=== PATIENT | female | born 1965 | race Two or more races ===

== ENCOUNTER 2016-07-15 12:46 | Emergency (ER) | payer SELFPAY ==
--- NOTE | 2016-07-15 13:13 | ER Document Report ---
ED Medical Screen (RME) - General Stated Complaint: VAGINAL BLEEDING >30 DAYS Time seen by provider: 13:12 Mode of Arrival: Ambulatory Information source: Patient Notes: 50-year-old female complaining of vaginal bleeding since 06/04/2015. The bleeding has been very heavy for 3 days. Large clot this morning. - Related Data Allergies/Adverse Reactions: No Known Allergies Allergy (Verified 07/15/16 13:11) Physical Exam - Vital signs Vitals: Temp Pulse Resp BP Pulse Ox 97.9 F 66 16 142/75 H 98 07/15/16 13:04 07/15/16 13:04 07/15/16 13:04 07/15/16 13:04 07/15/16 13:04 Course - Vital Signs Vital signs: Temp Pulse Resp BP Pulse Ox 97.9 F 66 16 142/75 H 98 07/15/16 13:04 07/15/16 13:04 07/15/16 13:04 07/15/16 13:04 07/15/16 13:04
[2016-07-15 13:37] LABS: ABSOLUTE BASOPHILS # (AUTO) 0.1 10^3/uL (0.0-0.2); ABSOLUTE EOSINOPHILS # (AUTO) 0.1 10^3/uL (0.0-0.6); ABSOLUTE LYMPHOCYTES (AUTO) 1.3 10^3/uL (0.5-4.7); ABSOLUTE MONOCYTES (AUTO) 0.3 10^3/uL (0.1-1.4); ABSOLUTE NEUT (AUTO) 3.6 10^3/uL (1.7-8.2); BASOPHILS % (AUTO) 1.3 % (0-2); EOSINOPHILS % (AUTO) 1.8 % (0-6); HEMATOCRIT 36.1 % (36.0-47.0); HEMOGLOBIN 12.3 g/dL (12.0-15.5); HGB HCT DIFFERENCE 0.8; LYMPHOCYTES % (AUTO) 24.5 % (13-45); MEAN CORPUSCULAR HEMOGLOBIN 30.5 pg (27.0-33.4); MEAN CORPUSCULAR HGB CONC 33.9 g/dL (32.0-36.0); MEAN CORPUSCULAR VOLUME 90 fl (80-97); MONOCYTES % (AUTO) 6.1 % (3-13); RED BLOOD COUNT 4.02 10^6/uL (3.72-5.28); RED CELL DISTRIBUTION WIDTH 13.7 % (11.5-14.0); SEGMENTED NEUTROPHILS % (AUTO) 66.3 % (42-78); WHITE BLOOD COUNT 5.4 10^3/uL (4.0-10.5)
[2016-07-15 13:48] LABS: ALANINE AMINOTRANSFERASE 13 U/L (9-52); ALBUMIN 4.3 g/dL (3.5-5.0); ALKALINE PHOSPHATASE 76 U/L (38-126); ANION GAP 10 (5-19); ASPARTATE AMINO TRANSFERASE 19 U/L (14-36); BILIRUBIN,TOTAL 0.8 mg/dL (0.2-1.3); BLOOD UREA NITROGEN 9 mg/dL (7-20); CALCIUM 9.3 mg/dL (8.4-10.2); CARBON DIOXIDE 26 mmol/L (22-30); CHLORIDE 103 mmol/L (98-107); CREATININE RESULT 0.65 mg/dL (0.52-1.25); GLUCOSE 89 mg/dL (75-110); SODIUM 138.6 mmol/L (137-145); TOTAL PROTEIN 6.4 g/dL (6.3-8.2)
--- NOTE | 2016-07-15 14:17 | ER Document Report ---
ED GI/ <MARIELA MONTES - Last Filed: 07/15/16 14:17> - General Mode of Arrival: Ambulatory Information source: Patient TRAVEL OUTSIDE OF THE [place] IN LAST 30 DAYS: No - HPI Patient complains to provider of: Vaginal bleeding Onset: Just prior to arrival Timing/Duration: Persistent Quality of pain: No pain Location: Vaginal Associated symptoms: Other - fatigue <ANABEL MORELOS - Last Filed: 07/15/16 17:12> - General Chief Complaint: Vaginal Bleeding Stated Complaint: VAGINAL BLEEDING >30 DAYS Notes: Patient is a 50 year old female that presents to the emergency department today with complaints of vaginal bleeding. Patient states she has had dysfunctional uterine bleeding for quite some time, approximately 8 years "off and on". Patient states this bleeding episode was light and began on 2015 and has been consistently light until two days ago when the bleeding got heavier and she began passing clots. Patient has not been worked up for this in the psat. Patient also complains of fatigue. (ANABEL MORELOS) - Related Data Allergies/Adverse Reactions: No Known Allergies Allergy (Verified 07/15/16 13:11) Past Medical History <MARIELA MONTES - Last Filed: 07/15/16 14:17> - General Information source: Patient, [facility] Records - Social History Smoking Status: Never Smoker - second hand smoke exposure Cigarette use (# per day): No Frequency of alcohol use: Occasional Drug Abuse: None Lives with: Family Family History: Reviewed & Not Pertinent Patient has suicidal ideation: No Patient has homicidal ideation: No Surgical Hx: Negative <ANABEL MORELOS - Last Filed: 07/15/16 17:12> - Medical History Notes: dysfunctional uterine bleeding (ANABEL MORELOS) Review of Systems - Review of Systems Constitutional: No symptoms reported EENT: No symptoms reported Cardiovascular: No symptoms reported Respiratory: No symptoms reported Gastrointestinal: No symptoms reported Genitourinary: No symptoms reported Female Genitourinary: See HPI, Heavy/abnormal periods, Irregular period, Vaginal bleeding Musculoskeletal: No symptoms reported Skin: No symptoms reported Hematologic/Lymphatic: No symptoms reported Neurological/Psychological: No symptoms reported -: Yes All other systems reviewed and negative <ANABEL MORELOS - Last Filed: 07/15/16 17:12> Physical Exam - General General appearance: Appears well, Alert In distress: None - HEENT Head: Normocephalic, Atraumatic Eyes: Normal Extraocular movements intact: Yes - Respiratory Respiratory status: No respiratory distress - Cardiovascular Rhythm: Regular Heart sounds: Normal auscultation - Abdominal Inspection: Normal Distension: No distension - Extremities General upper extremity: Normal inspection, Nontender. No: Edema General lower extremity: Normal inspection, Nontender. No: Edema - Neurological Neuro grossly intact: Yes Cognition: Normal Speech: Normal - Psychological Associated symptoms: Normal affect, Normal mood - Skin Skin Temperature: Warm Skin Moisture: Dry Skin Color: Normal <ANABEL MORELOS - Last Filed: 07/15/16 17:12> - Vital signs Vitals: Temp Pulse Resp BP Pulse Ox 97.9 F 66 16 142/75 H 98 07/15/16 13:04 07/15/16 13:04 07/15/16 13:04 07/15/16 13:04 07/15/16 13:04 (MARIELA MONTES) (ANABEL MORELOS) Course - Laboratory Result Diagrams: 07/15/16 13:20 07/15/16 13:20 <MARIELA MONTES - Last Filed: 07/15/16 14:17> - Laboratory Result Diagrams: 07/15/16 13:20 07/15/16 13:20 <ANABEL MORELOS - Last Filed: 07/15/16 17:12> - Vital Signs Vital signs: Temp Pulse Resp BP Pulse Ox 98.4 F 68 20 126/78 H 99 07/15/16 15:03 07/15/16 15:03 07/15/16 15:03 07/15/16 15:03 07/15/16 15:03 (MARIELA MONTES) (ANABEL MORELOS) Scribe Documentation - Scribe acting as scribe for :: Di <ANABEL MORELOS - Last Filed: 07/15/16 17:12> - Scribe Written by Scribe:: SHUKRI PEREZ 07/15/16 1914 (ANABEL MORELOS)
[2016-07-15 15:04] VITALS: BP 126/78
== END 2016-07-15 15:03 | disposition home or self-care (01) ==
LOC: ER 12:46
DX: Z77.22 Contact with and (suspected) exposure to environmental tobacco smoke (acute) (chronic) (principal); N93.8 Other specified abnormal uterine and vaginal bleeding; R53.83 Other fatigue
CPT/HCPCS: 36415; 80053; 84703; 85025; 86850; 86900; 86901; 99284

== ENCOUNTER 2016-07-25 16:15 | Emergency (ER) | payer SELFPAY ==
--- NOTE | 2016-07-25 16:29 | ER Document Report ---
ED Medical Screen (RME) - General Stated Complaint: VAGINAL BLEEDING Time seen by provider: 16:27 Mode of Arrival: Ambulatory Information source: Patient Notes: 50-year-old female presents to ED for vaginal bleeding. She was seen last week by Dr. Sevilla and started on Provera. States after starting on the Provera the bleeding decreased for one day on Thursday and never stopped. Has now increased increased sense clots are now quarter size. I have greeted and performed a rapid initial assessment of this patient. A comprehensive ED assessment and evaluation of the patient, analysis of test results and completion of medical decision making process will be conducted by an additional ED providers. TRAVEL OUTSIDE OF THE [place] IN LAST 30 DAYS: No - Related Data Allergies/Adverse Reactions: No Known Allergies Allergy (Verified 07/15/16 13:11) Past Medical History - Immunizations Hx Diphtheria, Pertussis, Tetanus Vaccination: No Physical Exam - Vital signs Vitals: Temp Pulse Resp BP Pulse Ox 98.4 F 73 18 131/78 H 99 07/25/16 16:23 07/25/16 16:23 07/25/16 16:23 07/25/16 16:23 07/25/16 16:23 Course - Vital Signs Vital signs: Temp Pulse Resp BP Pulse Ox 98.4 F 73 18 131/78 H 99 07/25/16 16:23 07/25/16 16:23 07/25/16 16:23 07/25/16 16:23 07/25/16 16:23
[2016-07-25 17:07] LABS: ALANINE AMINOTRANSFERASE 15 U/L (9-52); ALBUMIN 4.4 g/dL (3.5-5.0); ALKALINE PHOSPHATASE 92 U/L (38-126); ANION GAP 12 (5-19); ASPARTATE AMINO TRANSFERASE 20 U/L (14-36); BILIRUBIN,TOTAL 0.5 mg/dL (0.2-1.3); BLOOD UREA NITROGEN 10 mg/dL (7-20); CALCIUM 9.1 mg/dL (8.4-10.2); CARBON DIOXIDE 24 mmol/L (22-30); CHLORIDE 105 mmol/L (98-107); CREATININE RESULT 0.77 mg/dL (0.52-1.25); GLUCOSE 94 mg/dL (75-110); POTASSIUM 3.9 mmol/L (3.6-5.0); SODIUM 140.8 mmol/L (137-145); TOTAL PROTEIN 6.7 g/dL (6.3-8.2)
[2016-07-25 17:11] LABS: APPEARANCE,URINE SLIGHTLY-CLOUDY; BILIRUBIN,URINE NEGATIVE (NEGATIVE); GLUCOSE, URINE NEGATIVE (NEGATIVE); KETONES,URINE NEGATIVE (NEGATIVE); LEUKOCYTE ESTERASE,URINE TRACE (NEGATIVE); NITRITE,URINE NEGATIVE (NEGATIVE); PROTEIN,URINE 30 mg/dL (NEGATIVE); URINE SPECIFIC GRAVITY 1.021; UROBILINOGEN,URINE NEGATIVE mg/dL (<2.0)
[2016-07-25 17:20] LABS: ABSOLUTE BASOPHILS # (AUTO) 0.1 10^3/uL (0.0-0.2); ABSOLUTE EOSINOPHILS # (AUTO) 0.1 10^3/uL (0.0-0.6); ABSOLUTE LYMPHOCYTES (AUTO) 1.4 10^3/uL (0.5-4.7); ABSOLUTE MONOCYTES (AUTO) 0.3 10^3/uL (0.1-1.4); HEMATOCRIT 35.8 % (36.0-47.0); HEMOGLOBIN 11.7 g/dL (12.0-15.5); HGB HCT DIFFERENCE -0.7; LYMPHOCYTES % (AUTO) 28.2 % (13-45); MEAN CORPUSCULAR HEMOGLOBIN 30.3 pg (27.0-33.4); MEAN CORPUSCULAR HGB CONC 32.5 g/dL (32.0-36.0); MEAN CORPUSCULAR VOLUME 93 fl (80-97); MONOCYTES % (AUTO) 6.5 % (3-13); RED BLOOD COUNT 3.85 10^6/uL (3.72-5.28); RED CELL DISTRIBUTION WIDTH 13.7 % (11.5-14.0); SEGMENTED NEUTROPHILS % (AUTO) 61.3 % (42-78); WHITE BLOOD COUNT 4.9 10^3/uL (4.0-10.5)
--- NOTE | 2016-07-25 18:11 | ER Document Report ---
Addendum entered and electronically signed by PEPE MORRIS NP 07/26/16 11:27 : Course - Re-evaluation Re-evalutation: 07/26/16 11:24 Patient called and urinalysis shows greater than 100,000 colonies gram-negative rods. Her TSH was normal. I will call in Cipro 500 mg twice a day #6 no refill to [facility] on [address]. [phone]. - Vital Signs Vital signs: Temp Pulse Resp BP Pulse Ox 98.2 F 72 16 138/72 H 99 07/25/16 19:47 07/25/16 19:47 07/25/16 19:47 07/25/16 19:47 07/25/16 19:47 - Laboratory Result Diagrams: 07/25/16 16:35 07/25/16 16:35 Laboratory results interpreted by me: 07/25/16 07/25/16 16:35 16:35 Hgb 11.7 L Hct 35.8 L Urine Protein 30 H Urine Blood LARGE H Ur Leukocyte Esterase TRACE H Original Note: ED GI/ - General Chief Complaint: Vaginal Bleeding Stated Complaint: VAGINAL BLEEDING Time seen by provider: 18:11 Mode of Arrival: Ambulatory Information source: Patient Notes: 50 yo female returns to er after being seen 07-15-16 for vaginal bleeding because she is tired of bleeding. smaller clots but still is bleeding. Took last provera last night. had slowed down 1 week ago, but picking up again on thursday with cramping. no hx abnl pap smears, did have ovarian cyst, gc with first spouse. No vaginal discharge. Told to follow up [facility], no appt made due to being tired. sleeping alot. , last spon miscarriage 2007. no pain now and bleeding is milder. TRAVEL OUTSIDE OF THE [place] IN LAST 30 DAYS: No - Related Data Allergies/Adverse Reactions: No Known Allergies Allergy (Verified 07/25/16 16:29) Past Medical History - General Information source: Patient - Social History Smoking Status: Never Smoker Chew tobacco use (# tins/day): No Frequency of alcohol use: Social Drug Abuse: None Family History: Reviewed & Not Pertinent Patient has suicidal ideation: No Patient has homicidal ideation: No - Medical History Medical History: Negative Surgical Hx: Negative - Immunizations Hx Diphtheria, Pertussis, Tetanus Vaccination: No Review of Systems - Review of Systems Constitutional: No symptoms reported EENT: No symptoms reported Cardiovascular: No symptoms reported Respiratory: No symptoms reported Gastrointestinal: No symptoms reported Genitourinary: No symptoms reported Female Genitourinary: See HPI Musculoskeletal: No symptoms reported Skin: No symptoms reported Hematologic/Lymphatic: No symptoms reported Neurological/Psychological: No symptoms reported Physical Exam - Vital signs Vitals: Temp Pulse Resp BP Pulse Ox 98.4 F 73 18 131/78 H 99 07/25/16 16:23 07/25/16 16:23 07/25/16 16:23 07/25/16 16:23 07/25/16 16:23 Interpretation: Normal - General General appearance: Appears well, Alert In distress: None - HEENT Head: Normocephalic, Atraumatic Eyes: Normal Pupils: PERRL Neck: Supple - Respiratory Respiratory status: No respiratory distress Chest status: Nontender Breath sounds: Normal Chest palpation: Normal - Cardiovascular Rhythm: Regular Heart sounds: Normal auscultation Murmur: No - Abdominal Inspection: Normal Distension: No distension Bowel sounds: Normal Tenderness: Nontender. No: Tender Organomegaly: No organomegaly - Back Back: Normal, Nontender. No: CVA tenderness - Extremities General upper extremity: Normal inspection, Nontender, Normal color, Normal ROM , Normal temperature General lower extremity: Normal inspection, Nontender, Normal color, Normal ROM , Normal temperature, Normal weight bearing. No: Elton's sign - Neurological Neuro grossly intact: Yes Cognition: Normal Orientation: AAOx4 Babak Coma Scale Eye Opening: Spontaneous Babak Coma Scale Verbal: Oriented [place] Coma Scale Motor: Obeys Commands [place] Coma Scale Total: 15 Speech: Normal Motor strength normal: LUE, RUE, LLE, RLE Sensory: Normal - Psychological Associated symptoms: Normal affect, Normal mood - Skin Skin Temperature: Warm Skin Moisture: Dry Skin Color: Normal Skin irregularity: negative: Rash Course - Re-evaluation Re-evalutation: 07/25/16 18:[address] grant per [facility] guidelines, agrees with plan and dispo. - Vital Signs Vital signs: Temp Pulse Resp BP Pulse Ox 98.4 F 73 18 131/78 H 99 07/25/16 16:23 07/25/16 16:23 07/25/16 16:23 07/25/16 16:23 07/25/16 16:23 - Laboratory Result Diagrams: 07/25/16 16:35 07/25/16 16:35 Laboratory results interpreted by me: 07/25/16 07/25/16 16:35 16:35 Hgb 11.7 L Hct 35.8 L Urine Protein 30 H Urine Blood LARGE H Ur Leukocyte Esterase TRACE H Discharge - Discharge Clinical Impression: vaginal bleeding Condition: Good Disposition: HOME, SELF-CARE Instructions: Vaginal Bleeding ([facility]) Additional Instructions: call me tomorrow at [phone] for the thyroid screening test result after 10 am return to ER if increased bleeding, pain call thursday for appointment at [facility] next week for further evaluation and treatment options for perimenopausal symptoms. Referrals: LUCINDA ARROYO DO [BARBARA GLYNN] - 07/28/16
[2016-07-25 20:11] VITALS: BP 138/72
== END 2016-07-25 19:47 | disposition home or self-care (01) ==
LOC: ER 16:15
DX: N93.9 Abnormal uterine and vaginal bleeding, unspecified (principal)
CPT/HCPCS: 36415; 80053; 81001; 84443; 84703; 85025; 87086; 87088; 87186; 99284

== ENCOUNTER 2018-12-20 11:40 | Emergency (ER) | payer SELFPAY ==
[2018-12-20 12:09] VITALS: BP 130/84
--- NOTE | 2018-12-20 12:20 | ER Document Report ---
HPI - HPI Patient complains to provider of: bilateral ear pain headaches Time Seen by Provider: 12/20/18 12:07 Onset: Other - 6-7 months Severity: Severe Pain Level: 4 Context: Patient presents emergency department with complaints of bilateral ear pain itchy ears that make her headache. Reports symptoms for the past 6 7 months. Denies fever vomiting diarrhea. Denies trauma. Denies past medical history of injury to the ears. Reports she will of headaches from her catholic down to the base of her skull. She reports it does not matter the time a year the temperature. No trending of the pain that she is aware of. Associated Symptoms: None Exacerbated by: Denies Relieved by: Denies Similar symptoms previously: No Recently seen / treated by doctor: No - REPRODUCTIVE Reproductive: DENIES: : Past Medical History - General Information source: Patient Last Menstrual Period: menopause - Social History Smoking Status: Unknown if Ever Smoked Cigarette use (# per day): No Frequency of alcohol use: None Drug Abuse: None Lives with: Family Family History: Reviewed & Not Pertinent Patient has suicidal ideation: No Patient has homicidal ideation: No - Medical History Medical History: Negative Renal/ Medical History: Denies: Hx Peritoneal Dialysis Past Surgical History: Reports: Hx Gynecologic Surgery - Immunizations Hx Diphtheria, Pertussis, Tetanus Vaccination: No Vertical Provider Document - CONSTITUTIONAL Agree With Documented VS: Yes Exam Limitations: No Limitations General Appearance: WD/WN, No Apparent Distress - INFECTION CONTROL TRAVEL OUTSIDE OF THE [place] IN LAST 30 DAYS: No - HEENT HEENT: Atraumatic, Normal ENT Exam, Normocephalic. negative: Conjuctival Injection, Pharyngeal Exudate, Pharyngeal Erythema, Tympanic Membrane Red, Tympanic Membrane Bulging - NECK Neck: Normal Inspection, Supple. negative: Lymphadenopathy-Left, Lymphadenopathy-Right - RESPIRATORY Respiratory: Breath Sounds Normal, No Respiratory Distress - CARDIOVASCULAR Cardiovascular: Regular Rate, Regular Rhythm - MUSCULOSKELETAL/EXTREMETIES Musculoskeletal/Extremeties: MARTINEZ GONZÁLES - NEURO Level of Consciousness: Awake, Alert, Appropriate Motor/Sensory: No Motor Deficit - DERM Integumentary: Warm, Dry Course - Vital Signs Vital signs: Temp Pulse Resp BP Pulse Ox 98.5 F 73 16 130/84 H 97 12/20/18 12:07 12/20/18 12:07 12/20/18 12:07 12/20/18 12:07 12/20/18 12:07 Discharge - Discharge Clinical Impression: Chronic pain of both ears, headaches Condition: Stable Disposition: HOME, SELF-CARE Instructions: [facility], ENT, Use of [id number] Ibuprofen ([facility]) Additional Instructions: *You have been evaluated for chronic ear pain, Headaches *Follow up with a primary care provider or the [facility] within one week for recheck and referral to ENTas indicated Take Tylenol or ibuprofen as indicated for pain *Return to ED for worsening condition, changes, needs Monitor your blood pressure. Your blood pressure was elevated today. This may be because you were anxious, in pain or because you need medication. It is important to follow up with your primary care provider for full evaluation. Forms: Elevated Blood Pressure
== END 2018-12-20 12:22 | disposition home or self-care (01) ==
LOC: ER 11:40
DX: H92.03 Otalgia, bilateral (principal); G89.29 Other chronic pain; R51 Headache
CPT/HCPCS: 99282